=== PATIENT | male | born 1990 | race Caucasian/White ===

== ENCOUNTER 2023-11-26 11:31 | Day surgery (SDC) | payer BC ==
[2023-11-24 12:37] VITALS: BMI 18.1
[2023-11-26] MEDS: LACTATED RINGERS 1,000 ML IV SCH (11:48)
[2023-11-26] MEDS ORDERED: MIDAZOLAM 2 MG/2 ML VIAL ONE (12:20)
[2023-11-26] MEDS ORDERED: fentaNYL (PF) 50 MCG/ML 2 ML AMP ONE (12:20)
[2023-11-26] MEDS ORDERED: PROPOFOL 10 MG/ML 20 ML VIAL IV ONE (12:20)
[2023-11-26 12:27] VITALS: TEMP 98.2
--- NOTE | 2023-11-26 12:28 | P.PCN ---
Date of Procedure: 11/26/23 Procedure(s) Performed: BRIEF HISTORY: Patient is a 33-year-old, pleasant, white male scheduled for an upper endoscopy as a part of evaluation of GERD. He was recently started omeprazole 20 mg daily and says that his symptoms are gradually improving. PROCEDURE PERFORMED: Esophagogastroduodenoscopy with biopsy PREOPERATIVE DIAGNOSIS: Longstanding history of GERD. IV sedation per anesthesia. PROCEDURE: After informed consent was obtained, the patient was brought into the endoscopy unit. IV sedation was administered by Anesthesia under continuous monitoring. Initially the Olympus GIF-140 video endoscope was inserted into the mouth. Esophagus intubated without any difficulty. It was gradually advanced into the stomach and duodenum and carefully examined. The bulb and the second part of the duodenum appeared normal. The scope at this time was withdrawn to the stomach, adequately insufflated with air, and upon careful examination, mucosa of the antrum, had mild gastritis and biopsies were done from this area. Mucosa of the body, cardia and the fundus appeared normal. The scope was then wi thdrawn into the esophagus. Small hiatal hernia noted. The GE junction was located at 39 cm from the incisors. The esophagus appeared normal. There were no erosions or ulcerations seen and the patient tolerated the procedure well. IMPRESSION: 1. Mild antral gastritis. 2. Very small sliding-type hiatal hernia. RECOMMENDATIONS: The findings of this examination were discussed with the patient as well as his family. Follow-up with the biopsy results. He was advised to continue with omeprazole 20 mg daily and follow antireflux measures..
[2023-11-26 13:20] VITALS: BP 96/57; PULSE 60; RESP 16
== END 2023-11-26 13:25 | disposition home or self-care (01) ==
LOC: ORWHC2ENDO 11:31
PROVIDERS: ATTEND Internal Medicine Gastroenterology
DX: K29.50 Unspecified chronic gastritis without bleeding (principal); K31.9 Disease of stomach and duodenum, unspecified; K44.9 Diaphragmatic hernia without obstruction or gangrene; K21.9 Gastro-esophageal reflux disease without esophagitis; F12.90 Cannabis use, unspecified, uncomplicated; Z79.899 Other long term (current) drug therapy
CPT/HCPCS: 88305; 43239; J2250; J3010; J2704